=== PATIENT | male | born 1960 | race Caucasian/White ===

== ENCOUNTER 2016-09-07 20:13 | Emergency (ER) | payer SELFPAY ==
--- NOTE | ~2016-09-07 | CR72 ---
[facility] A Service of [facility] RADIOLOGY TEXT RESULTS PATIENT: MICHAEL AG LOCATION: [facility] : 64 UNIT #: [id number] AGE: [address]: Davonte James MD SEX: M ORDER DR: [id number] [facility] [address] [place], [place] [address] [id number] MR#: [id number] Acc #: [id number] NAME: MICHAEL AG. : 1960 SEX: M STUDY DATE/TIME: 09/07/2016 20:31 UNIT: [facility] ROOM: STUDY DESCRIPTION: CR Chest Single View Portable Attending Physician: Davonte James M.D. Ordering Physician: Luke Urena M.D. Primary Care Physician: Primary Care Physician No MEDICAL IMAGING REPORT This report is preliminary unless electronic signature is present EXAM Single view of the chest, 09/07/2016 COMPARISON Chest 2 views dated 01/26/2016 HISTORY Chest pain. FINDINGS Single view of the chest was obtained. A single AP portable view of the chest shows both lungs to be clear. The heart is normal in size. The mediastinal contour is normal. No significant bone abnormalities are seen. There is bony deformity which is stable when compared to the prior study from last year involving the lateral end of the clavicle, likely relating to old healed fracture in this region. There is probably some increase in left acromioclavicular joint space, stable. IMPRESSION Normal portable chest. Dictated by... Tommie Harrison M.D. THIS IS AN ELECTRONICALLY VERIFIED REPORT Tommie Harrison M.D. at 09/09/2016 6:03 PM CPR/ljd TD: 09/07/2016 23:09 [facility] A Service of [facility] RADIOLOGY TEXT RESULTS PATIENT: MICHAEL AG LOCATION: [facility] : 64 UNIT #: [id number] AGE: [address]: Davonte James MD SEX: M ORDER DR: JOB #: [id number] MEDICAL IMAGING REPORT Page 1 of 1 COPY
--- NOTE | ~2016-09-07 | EKG ---
PATIENT: MICHAEL AG UNIT #: [id number] Ventricular Rate: 90 BPM Atrial Rate: 90 BPM P-R Interval: 178 ms QRS Duration: 72 ms Q-T Interval: 342 ms QTC Calculation(Bezet): 418 ms P [place]: 82 degrees Calculated R [place]: 86 degrees Calculated T [place]: 65 degrees Diagnosis Line: Normal sinus rhythm Diagnosis Line: Septal infarct Possible (cited on or before Diagnosis Line: 03-AUG-2010) Diagnosis Line: Abnormal ECG Diagnosis Line: When compared with ECG of 26-JAN-2016 18:31, Diagnosis Line: Premature atrial complexes are no longer Present Diagnosis Line: Confirmed by CRISTINA CORDOBA MD ([id number]) on 09/08/2016 Diagnosis Line: 7:40:51 AM INTERPRETING MD: ADALID URBINA
[~2016-09-07 20:13] MED LIST: ALBUTEROL17 GM INH; INDOMETHACIN75 MG PO; LIBRIUM PO; MULTI-VITAMIN1 TAB PO; NO MEDICATIONS; PAIN RELIEVER325 M1 PO; PROTONIX PO; ROBAXIN PO
[2016-09-07 20:41] LABS: BASOPHIL% 0.5 % (0-2.5); EOSINOPHIL# 0.3 X10e3 (0-0.7); EOSINOPHIL% 6.3 % (0.0-7.0); HEMATOCRIT 43.2 % (38.0-50.0); HEMOGLOBIN 14.5 gm/dL (13.0-16.0); LYMPHOCYTE# 2.1 X10e3 (1.0-3.5); LYMPHOCYTE% 48.5 % (17.0-45.0); MEAN CORPUSCULAR HEMOGLOBIN 31.8 PG (28-34); MEAN CORPUSCULAR HGB CONC 33.5 g/dL (30-36); MEAN PLATELET VOLUME 7.4 FL (6.5-11.5); MONOCYTE# 0.3 X10e3 (0-1.0); MONOCYTE% 7.7 % (3.0-12.0); NEUTROPHIL# 1.6 X10e3 (1.5-7.1); PLATELET COUNT 119 X10e3 (140-420); RED BLOOD COUNT 4.54 X10e (3.90-5.60); RED CELL DISTRIBUTION WIDTH 15.3 % (11.0-15.5); WHITE BLOOD COUNT 4.3 X10e3 (4.0-10.5)
[2016-09-07 20:42] LABS: DIFF IND NO
[2016-09-07 21:06] LABS: ALBUMIN SERUM 4.2 g/dL (3.5-5.0); BILIRUBIN, DIRECT 0.1 mg/dL (0.0-0.2); BILIRUBIN,INDIRECT 0.3 mg/dL (0.0-0.9); BILIRUBIN,TOTAL 0.4 mg/dL (0.2-2.0); BUN/CREATININE RATIO 6.66; CALCIUM SERUM 8.6 mg/dL (8.4-10.2); CREATININE SERUM 0.9 mg/dL (0.6-1.4); GLOM FILT RATE Estimated 96.5 mL/min (>60); POTASSIUM 3.8 mmol/L (3.5-5.1); PROTEIN TOTAL SERUM 7.4 g/dL (6.0-8.3)
[2016-09-07 21:11] LABS: POC - CKMB <1.0 ng/mL (0.0-7.9); POC - TROPONIN <0.05 ng/mL (<=0.05)
== END 2016-09-07 22:15 | disposition home or self-care (01) ==
LOC: CED 20:13
PROVIDERS: Emergency Medicine
DX: R07.89 Other chest pain (principal); F10.129 Alcohol abuse with intoxication, unspecified; F17.200 Nicotine dependence, unspecified, uncomplicated; Z79.899 Other long term (current) drug therapy
CPT/HCPCS: 36415; 71010; 80048; 80076; 82553; 83690; 84484; 85025; 93005; 99285; G0480

== ENCOUNTER 2016-10-13 23:54 | Emergency (ER) | payer SELFPAY ==
--- NOTE | ~2016-10-13 | EKG ---
PATIENT: MICHAEL AG UNIT #: [id number] Ventricular Rate: 84 BPM Atrial Rate: 84 BPM P-R Interval: 204 ms QRS Duration: 74 ms Q-T Interval: 382 ms QTC Calculation(Bezet): 451 ms P [place]: 77 degrees Calculated R [place]: 87 degrees Calculated T [place]: 74 degrees Diagnosis Line: Normal sinus rhythm Diagnosis Line: Septal infarct , age undetermined Diagnosis Line: Abnormal ECG Diagnosis Line: No previous ECGs available Diagnosis Line: Confirmed by DUTCH GEIGER MD ([id number]) on Diagnosis Line: 10/15/2016 7:31:08 AM INTERPRETING MD: JUANJO URBINA
[2016-10-14 03:04] LABS: BASOPHIL% 0.4 % (0-2.5); EOSINOPHIL% 0.5 % (0.0-7.0); HEMATOCRIT 46.8 % (38.0-50.0); HEMOGLOBIN 15.7 gm/dL (13.0-16.0); LYMPHOCYTE# 1.1 X10e3 (1.0-3.5); LYMPHOCYTE% 18.3 % (17.0-45.0); MEAN CELL VOLUME 96.6 FL (83-96); MEAN CORPUSCULAR HEMOGLOBIN 32.5 PG (28-34); MEAN CORPUSCULAR HGB CONC 33.7 g/dL (30-36); MEAN PLATELET VOLUME 7.4 FL (6.5-11.5); MONOCYTE# 0.5 X10e3 (0-1.0); MONOCYTE% 8.5 % (3.0-12.0); NEUTROPHIL# 4.1 X10e3 (1.5-7.1); NEUTROPHIL% 72.3 % (40-75); PLATELET COUNT 102 X10e3 (140-420); RED BLOOD COUNT 4.85 X10e (3.90-5.60); RED CELL DISTRIBUTION WIDTH 15.7 % (11.0-15.5); WHITE BLOOD COUNT 5.7 X10e3 (4.0-10.5)
[2016-10-14 03:10] LABS: DIFF IND NO
[2016-10-14 03:31] LABS: ALBUMIN SERUM 4.6 g/dL (3.5-5.0); BILIRUBIN, DIRECT 0.2 mg/dL (0.0-0.2); BILIRUBIN,TOTAL 1.2 mg/dL (0.2-2.0); CALCIUM SERUM 8.9 mg/dL (8.4-10.2); CREATININE SERUM 0.9 mg/dL (0.6-1.4); GLOM FILT RATE Estimated 96.5 mL/min (>60); POTASSIUM 3.6 mmol/L (3.5-5.1); PROTEIN TOTAL SERUM 8.1 g/dL (6.0-8.3)
== END 2016-10-14 04:35 | disposition home or self-care (01) ==
LOC: CED 23:54
PROVIDERS: Emergency Medicine
DX: T67.5XXA Heat exhaustion, unspecified, initial encounter (principal); F10.129 Alcohol abuse with intoxication, unspecified; H10.9 Unspecified conjunctivitis; F17.200 Nicotine dependence, unspecified, uncomplicated; X30.XXXA Exposure to excessive natural heat, initial encounter; Y92.9 Unspecified place or not applicable
CPT/HCPCS: 36415; 80048; 80076; 82550; 85025; 93005; 99284; G0480